=== PATIENT | male | born 1955 | race American Indian/Alaskan Native ===

== ENCOUNTER 2019-05-12 06:35 | Inpatient (IN) | payer OTHER ==
--- NOTE | 2019-05-07 11:22 | Anesthesia Consultation ---
Anesthesia Consult and Med Hx Date of service: 05/07/19 - Airway Anesthetic Teeth Evaluation: Good ROM Head & Neck: Adequate Mental/Hyoid Distance: Adequate Mallampati Class: Class II Intubation Access Assessment: Good - Pulmonary Exam CTA: Yes - Cardiac Exam Cardiac Exam: RRR - Pre-Operative Health Status ASA Pre-Surgery Classification: ASA2 Proposed Anesthetic Plan: General Nerve Block: Adductor canal - Pulmonary Hx Smoking: Yes (STOPPED 1974) Hx Sleep Apnea: No (ALDA PRE SCREEN HIGH RISK) - Cardiovascular System Hx Hypertension: Yes (X 30 YRS) Hx Coronary Artery Disease: No Hx Heart Attack/AMI: No - Central Nervous System Hx Back Pain: Yes (WITH PAIN AND NUMBNESS TO PERRY FEET) - Hematic Hx Anemia: No - Other Systems Hx Alcohol Use: Yes (WINE QD) Hx Cancer: No - Additional Comments Anesthesia Medical History Comments: Pt with HTN for knee revision surgery , pt was cleared by family practitioner
[~2019-05-12 06:35] MED LIST: ANCEF/STERILE WATER 2 GM/20 ML IV NR; LACTATED RINGERS 1,000 ML IV SCH; VERSED IV NR
[2019-05-12] MEDS ORDERED: NACL BACTERIOSTATIC INFILTRATI ONE (07:04)
[2019-05-12] MEDS: NACL 0.9% 1000 ML 1,000 ML IV SCH ×2 (07:10→19:52)
[2019-05-12] MEDS ORDERED: NACL 0.9% 500 ML 500 ML IV NR (07:30)
[2019-05-12] MEDS ORDERED: SUBLIMAZE ONE ×3 (07:32→11:43)
[2019-05-12] MEDS ORDERED: VERSED ONE (07:33)
[2019-05-12] MEDS ORDERED: XYLOCAINE 1% 20 mL ONE (07:33)
[2019-05-12] MEDS ORDERED: MARCAINE-EPI 0.5%-1:200,000 INFILTRATI ONE (07:34)
[2019-05-12] MEDS ORDERED: TORADOL ONE (07:51)
[2019-05-12] MEDS ORDERED: MARCAINE 0.25% INFILTRATI ONE ×2 (07:52→12:10)
[2019-05-12] MEDS ORDERED: ZOFRAN ONE (07:52)
[2019-05-12] MEDS ORDERED: DIPRIVAN 10 MG/ML IV ONE (07:52)
[2019-05-12] MEDS ORDERED: DECADRON ONE (07:52)
[2019-05-12] MEDS ORDERED: BACITRACIN ONE (07:53)
[2019-05-12] MEDS ORDERED: MORPHINE ONE (07:53)
[2019-05-12] MEDS ORDERED: POLYMYXIN B SULFATE IV ONE ×2 (07:53→11:30)
[2019-05-12] MEDS ORDERED: ZOFRAN IV PRN ×2 (07:57→12:10)
[2019-05-12] MEDS ORDERED: XYLOCAINE 1%/ EPI 1:100,000 INFILTRATI ONE ×2 (07:57→12:10)
--- NOTE | 2019-05-12 07:57 | Anesthesia Day of Surgery ---
Anesthesia Day of Surgery - Day of Surgery Patient Examined: Yes Patient H&P Reviewed: Yes Patient is NPO: Yes
[2019-05-12] MEDS ORDERED: NACL P/F VIAL (10 ML) 20 ML ONE ×2 (07:59→11:49)
[2019-05-12] MEDS ORDERED: XYLOCAINE CARDIAC IV ONE (08:23)
[2019-05-12] MEDS ORDERED: ZEMURON IV ONE (08:24)
[2019-05-12] MEDS ORDERED: CLORPACTIN WCS-90 IR ONE (10:12)
[2019-05-12] MEDS ORDERED: TRANEXAMIC ACID ONE (10:30)
[2019-05-12] MEDS ORDERED: NACL 0.9% 100 ML ONE (11:08)
[2019-05-12] MEDS ORDERED: NACL 0.9% IR ONE (11:30)
[2019-05-12] MEDS ORDERED: BACITRACIN IR ONE (11:30)
[2019-05-12] MEDS ORDERED: .VANCOMYCIN VIAL ONE (11:48)
[2019-05-12] MEDS ORDERED: TORADOL IV ONE (12:10)
[2019-05-12] MEDS ORDERED: MORPHINE IM ONE (12:10)
[2019-05-12] MEDS ORDERED: MORPHINE IV PRN (12:10)
[2019-05-12] MEDS ORDERED: NACL 0.9% IV ONE (12:10)
[2019-05-12] MEDS ORDERED: TRAMADOL HCL 200 MG PO PRN (12:19)
[2019-05-12] MEDS ORDERED: TORADOL IV PRN (12:22)
--- NOTE | 2019-05-12 12:29 | Progress Note ---
Subjective Date of service: 05/12/19 Interval history: s/p Revision knee, replacement of patella and poly exchange with soft tissue release, release of scar tisssue and adhesions. Patient to start ROM exercises and knee ROM. dressing dry, NVI CALF SOFT NT PT/OT Continue DVT prophylaxsis SED, and ASA ICE PACS KNEE Pain control Follow up with Valerie Forrest in 2 weeks. DC Planning to start by case sealer and HH arrangements to be made..for home nurse visit and home PT. Follow DC instyruction sheet in the chart Objective Vital signs: Vital Signs - 12hr 05/12/19 05/12/19 05/12/19 06:55 07:16 07:35 Temperature 98.1 F 98.1 F Pulse Rate 69 65 69 Respiratory 18 17 18 Rate Blood Pressure 148/103 143/90 148/103 O2 Sat by Pulse 97 95 97 Oximetry 05/12/19 05/12/19 05/12/19 07:48 08:16 08:27 Temperature Pulse Rate 71 64 69 Respiratory 17 10 L 12 Rate Blood Pressure 148/91 115/80 122/76 O2 Sat by Pulse 96 97 97 Oximetry - Labs Labs: Abnormal lab results 05/12/19 Range/Units 07:10 Crossmatch See Detail
[2019-05-12] MEDS ORDERED: VANCOMYCIN/NS 1 GM/250 ML 1 GM/250 ML BAG IV ONE (12:30)
[2019-05-12] MEDS: DILAUDID IV PRN ×3 (12:55→13:25)
[2019-05-12] MEDS ORDERED: SODIUM CHLORIDE FLUSH SYRINGE 10 ML IV NR (13:00)
--- NOTE | 2019-05-12 13:36 | XRay Report ---
Left knee 2 views Indication: Postop knee replacement Findings: Left total knee arthroplasty has been performed with satisfactory postoperative radiograph appearance . No fracture or subluxation. Signer Name: Donovan Sanchez MD Signed: 05/12/2019 1:31 PM Workstation Name: [id number]
--- NOTE | 2019-05-12 16:02 | Post Anesthesia Evaluation ---
- Post Anesthesia Evaluation Patient Participated: Yes Airway Patent: Yes Stable Respiratory Function: Yes Nausea/Vomiting: No Temp > 96.8F: Yes Pain Manageable: Yes Adequeate Hydration: Yes Anesthesia Complications: No Block Receding Appropriately: Yes Patient on Ventilator: No
[2019-05-12] MEDS: NEURONTIN PO SCH ×2 (16:13→21:34)
[2019-05-12] MEDS: ceFAZolin 2 GM in NACL 0.9% 100 ML IV SCH ×2 (16:22→22:45)
--- NOTE | 2019-05-12 17:11 | Operative Report ---
AGE: 64. SEX: Male. SURGEON: Palmer Jacobsen MD TUBER MACHINE OPERATOR HELPER: Dr. Mark Padilla and Morris Pena, operative tech. COMPLICATIONS: None. BLOOD LOSS: Less than 100 mL. PREOPERATIVE DIAGNOSES: 1. Instability of the left knee. 2. Unresurfaced patella, left knee joint, status post total knee replacement. 3. Painful left knee joint. POSTOPERATIVE DIAGNOSES: 1. Multidirectional instability, left knee joint. 2. Unresurfaced patella, left knee joint. 3. Scar tissue adhesions and osteophytes, juxta-articular area, left knee joint. BRIEF HISTORY: The patient also is a 64-year-old man with painful left knee, failed conservative treatment, opted to go for surgical intervention. Risk and benefit discussed, informed consent obtained, brought to the hospital for the above procedure. DETAILS OF THE OPERATIVE REPORT: The patient was taken to the operating room. After smooth general endotracheal anesthesia, all the bony prominences were carefully padded, placed supine on the operating table, thigh tourniquet was placed, left knee and left lower extremity prepped and draped in sterile fashion. The leg elevated, Esmarch used and tourniquet inflated to 300 mmHg. The patient was given 2 grams of Ancef half an hour before the procedure. Previous scar, longitudinal incision made over the anterior aspect of the knee and the same line where the previous scar was then extended a centimeter proximally and distally to get a better exposure and soft tissue plane. Incision was carried down deep to subcutaneous tissue and tensor extensor mechanism was exposed. Previous Ethibond sutures were identified and removed. Very minimal flaps were made. The arthrotomy performed. The fluid was sent for pathology, aspirated on the syringe for cell count with diff, aerobic and anaerobic culture. It looked very clear. Once the knee arthrotomy was performed, we noticed significant amount of osteophyte was in the suprapatellar area, which was kind of on the undersurface of the patella and was sitting on top of the anterior femur kind of which was basically acting as a fixed loose body in the retropatellar area. This was dissected out and removed. Noticed significant amount of bone spur on the medial tibial plateau abutting the medial collateral ligament, which was also dissected and removed, protecting the collateral ligament. Soft tissue release was performed minimal to get Z-retractor in place. We noticed there was multidirectional instability, some tightness in the varus and laxity over the lateral side with multidirectional instability present as well significant arthritic and worn out patella with ring osteophytes all around. Bare bone in the retropatellar area. Necessary pictures and videos were taken. The soft tissue in the suprapatellar area was released with a significant amount of scar tissue adhesions were present and medial lateral gutter was removed and soft tissue release on the anterior aspect of the patella. Anterior aspect of the femur was removed as well. Once necessary soft tissue release, scar tissue and adhesions were released and removed and diagnosis confirmed. The polyethylene liner was removed with 0.25 inch curved osteotome. We noticed the femur and tibia was assessed. This was properly rotated. It was well fixed. We made attempts to see and necessary steps were done to make sure if there was any micro motion. There was no micro motion on the tibia and there was no movement on the femoral side and they were very well fixed. Dr. Padilla was also present and aware of this as well. Finally, both decided to do a polyethylene exchange and replacement of the patella with necessary soft tissue release. The polyethylene liner, which was removed were noticed to have delamination and cracks on the posteromedial corner and there was missing significant delamination of the polyethylene with wear and tear of the posterior medial corner of the polyethylene liner. Once the liner was removed, the remnant of the worn out polyethylene liner was seen was removed as well. Thorough washing was then performed after the cultures were taken as culture swabs and tissue cultures were taken and then thorough washing was performed after that with antibiotic-soaked normal saline followed by normal saline. We decided to go with a polyethylene exchange and replacement of the patella. A trial liner was then placed with 13 liner, we had great stability. We had to do soft tissue release on the medial side to balance it both medial and laterally. Once necessary soft tissue release was performed, minimal release of the pes and capsular structures in the posterior medial corner of the tibia. This made a good balanced knee. The 13 liner was placed. We had full extension. There was about 10-15 degree hyperextension after the anesthesia. We noticed that after that with 13 poly, we had full extension and we had about 120 degree flexion. The knee was stable anteroposteriorly. The CS poly with anterior lip was placed. The 13 poly gave us great stability in flexion and extension. Patella was then replaced. The synovium around the patella was excised, measured to be 25 mm. Gradually, patella was prepared with patellar reaming system, prepared for three post-patella. The trial patella was then placed and knee again moved through range of motion and found to be extremely stable and patella tracked very well. The real liner was then implanted after thorough washing and 36 mm patella was then cemented in place, Palacos cement was used and it was compressed until the cement was hardened. Once this was done, the knee was again moved through range of motion, found to be extremely stable, full range of motion was seen, full extension and full flexion. Tourniquet was deflated in the middle and no active bleeder as such. Thorough washing was done and a pain cocktail injected into the periarticular tissue around the knee. Arthrotomy was closed with a combination of #1 Ethibond suture and 0 Vicryl suture, subcutaneous tissue was closed with 0 and 2-0 Vicryl interrupted sutures, skin was closed with Monocryl. Aquacel dressing done. The patient tolerated the procedure very well, shifted to recovery room in stable condition. Sponge and needle count was correct. JOB# [id number] SK/JANET
--- NOTE | 2019-05-12 17:51 | History and Physical Report ---
History of Present Illness Date of examination: 05/12/19 Date of admission: 05/12/19 06:35 Chief complaint: S/p Lt Knee revision surgery History of present illness: S/p Revision of L knee, replacement of patella and poly exchange with soft tissue release, release of scar tisssue and adhesions. Patient to start ROM exercises and knee ROM. Postop patient doing well. Patient with Hx of HTN and OA. Past History Past Medical History: hypertension Past Surgical History: total knee replacement Social history: lives with family, full code Family history: hypertension Medications and Allergies Allergies Allergy/AdvReac Type Severity Reaction Status Date / Time No Known Allergies Allergy Verified 05/06/16 11:51 Home Medications Medication Instructions Recorded Confirmed Last Taken Type Tramadol HCl [traMADol ER 100 MG] 200 mg PO PRN PRN 05/06/16 05/12/19 05/06/19 09:00 History Azilsartan Med/Chlorthalidone 1 each PO DAILY 05/04/19 05/12/19 05/12/19 05:00 History [Edarbyclor 40-12.5 mg Tablet] Active Meds: Active Medications Acetaminophen/Hydrocodone Bitart ([place] 10/325) 1 each PO Q4H PRN PRN Reason: Pain, Moderate (4-6) Aspirin (Aspirin) 325 mg PO BID IVETH Cefazolin Sodium (Ancef/Sterile Water 2 Gm/20 Ml) 2 gm IV PREOP NR Stop: 05/12/19 23:59 Celecoxib (Celebrex) 200 mg PO BID IVETH Chlorthalidone (Thalitone) 12.5 mg PO QDAY IVETH Gabapentin (Neurontin) 300 mg PO Q8HR IVETH Last Admin: 05/12/19 16:13 Dose: 300 mg Documented by: Hydromorphone HCl (Dilaudid) 0.5 mg IV Q10MIN PRN PRN Reason: Pain , Severe (7-10) Stop: 05/12/19 20:00 Last Admin: 05/12/19 13:25 Dose: 0.5 mg Documented by: Sodium Chloride (Nacl 0.9% 1000 Ml) 1,000 mls @ 100 mls/hr IV DIRECT IVETH Last Admin: 05/12/19 07:10 Dose: 100 mls/hr Documented by: Cefazolin Sodium 2 gm/ Sodium (Chloride) 100 mls @ 200 mls/hr IV Q8HR IVETH; Protocol Stop: 05/13/19 06:29 Last Admin: 05/12/19 16:22 Dose: 200 mls/hr Documented by: Ketorolac Tromethamine (Toradol) 15 mg IV Q6H PRN PRN Reason: Pain, Mild (1-3) Stop: 05/13/19 11:59 Last Admin: 05/12/19 13:04 Dose: 15 mg Documented by: Losartan Potassium (Cozaar) 50 mg PO QDAY [facility] Morphine Sulfate (Morphine) 2 mg IV Q4H PRN PRN Reason: Pain, Moderate (4-6) Last Admin: 05/12/19 16:27 Dose: 2 mg Documented by: Ondansetron HCl (Zofran) 4 mg IV ONCE PRN PRN Reason: Nausea And Vomiting Stop: 05/12/19 20:00 Ondansetron HCl (Zofran) 4 mg IV Q8H PRN PRN Reason: Nausea And Vomiting Oxycodone/Acetaminophen (Percocet 5/325) 1 tab PO Q6H PRN PRN Reason: Pain, Moderate (4-6) Sodium Chloride (Sodium Chloride Flush Syringe 10 Ml) 10 ml IV PRN NR Stop: 05/13/19 23:59 Review of Systems All systems: negative Constitutional: no weight loss, no weight gain, no fever, no chills, no sweats, no night sweats Ears, nose, mouth and throat: deferred Cardiovascular: no chest pain, no orthopnea, no palpitations, no rapid/irregular heart beat, no edema, no syncope, no lightheadedness, no shortness of breath Respiratory: no cough, no cough with sputum, no excessive sputum, no hemoptysis, no shortness of breath, no dyspnea on exertion Gastrointestinal: no abdominal pain, no nausea, no vomiting, no diarrhea, no constipation, no change in bowel habits, no hematemesis, no coffee ground emesis Genitourinary Male: no dysuria, no hematuria, no flank pain, no discharge, no urinary frequency, no urinary hesitancy, no nocturia, no incontinence, no erectile dysfunction, no genital pain Rectal: no pain Musculoskeletal: no neck stiffness, no neck pain, no shooting arm pain, no arm numbness/tingling, no low back pain, no shooting leg pain, no leg numbness/tingling, no redness of joints Integumentary: no rash, no pruritis, no redness, no sores, no wounds, no jaundice, no boils, no blisters Neurological: no head injury, no transient paralysis, no paralysis, no weakness, no parathesias, no numbness, no tingling, no seizures, no syncope, no tremors, no ataxia, no lack of coordination Psychiatric: no anxiety, no memory loss, no change in sleep habits, no sleep disturbances, no insomnia, no hypersomnia, no change in appetite, no change in libido, no suicidal ideation, no disorientation, no hallucinations Endocrine: no cold intolerance, no heat intolerance, no polyphagia, no excessive thirst, no polydipsia, no polyuria, no nocturia, no excessive sweating, no flushing, no weight change Hematologic/Lymphatic: no easy bruising, no easy bleeding Allergic/Immunologic: no urticaria, no allergic rhinitis, no wheezing Exam - Constitutional Vitals: Temp Pulse Resp BP Pulse Ox 97.4 F L 76 16 128/84 96 05/12/19 14:36 05/12/19 14:36 05/12/19 14:36 05/12/19 14:36 05/12/19 14:36 General appearance: Present: no acute distress, well-nourished - EENT Eyes: Present: PERRL ENT: hearing intact, clear oral mucosa - Neck Neck: Present: supple, normal ROM - Respiratory Respiratory effort: normal Respiratory: bilateral: CTA - Cardiovascular Heart rate: 78 Rhythm: regular Heart Sounds: Present: S1 & S2. Absent: rub, click - Extremities Extremities: pulses symmetrical, No edema Peripheral Pulses: within normal limits - Abdominal General gastrointestinal: Present: soft, non-tender, non-distended, normal bowel sounds Male genitourinary: Present: normal - Integumentary Integumentary: Present: clear, warm, dry - Musculoskeletal Musculoskeletal: gait normal, strength equal bilaterally - Psychiatric Psychiatric: appropriate mood/affect, intact judgment & insight - Neurologic Neurologic: CNII-XII intact, moves all extremities - Allied Health Allied health notes reviewed: nursing, case management Results - Labs Labs: Laboratory Last Values Blood Type O POSITIVE 05/12/19 07:10 Antibody Screen Negative 05/12/19 07:10 Crossmatch See Detail 05/12/19 07:10 Assessment and Plan Advance Directives: Yes (full code) VTE prophylaxis?: Mechanical Plan of care discussed with patient/family: Yes - Patient Problems (1) Status post right knee surgery Current Visit: Yes Status: Acute Plan to address problem: Patient had revision surgery on the left knee\ Postop patient doing well Physical therapy to be started Possible discharge on Friday (2) Hypertension Current Visit: Yes Status: Chronic Qualifiers: Hypertension type: essential hypertension Qualified Code(s): I10 - Essential (primary) hypertension Plan to address problem: Continue antihypertensives (3) Osteoarthritis Current Visit: Yes Status: Chronic Qualifiers: Osteoarthritis location: knee Laterality: bilateral Plan to address problem: Continue tramadol (4) DVT prophylaxis Current Visit: Yes Status: Acute Plan to address problem: On SCDs and GI prophylaxis (5) Discharge planning issues Current Visit: Yes Status: Acute Plan to address problem: field services manager to arrange for home health and home health physical therapy
[2019-05-12] MEDS: PERCOCET 5/325 PO PRN (21:33)
[2019-05-12] MEDS: ASPIRIN PO SCH (21:38)
[2019-05-13] MEDS: NACL 0.9% 1000 ML 1,000 ML IV SCH (04:57)
[2019-05-13] MEDS: PERCOCET 5/325 PO PRN ×2 (04:58→19:03)
[2019-05-13] MEDS: ceFAZolin 2 GM in NACL 0.9% 100 ML IV SCH (05:00)
[2019-05-13] MEDS: NEURONTIN PO SCH ×2 (05:00→22:50)
[2019-05-13 05:27] LABS: Hematocrit 39.1 % (35.5-45.6); Hemoglobin 13.5 gm/dl (11.8-15.2)
[2019-05-13 05:47] LABS: BUN/Creatinine Ratio 16; Blood Urea Nitrogen 16 mg/dL (9-20); Calcium 8.4 mg/dL (8.4-10.2); Hemolysis Index 18
[2019-05-13] MEDS: NORCO 10/325 PO PRN (09:07)
[2019-05-13] MEDS: ASPIRIN PO SCH ×2 (09:08→22:50)
[2019-05-13] MEDS: COZAAR PO SCH (09:09)
[2019-05-13] MEDS: THALITONE PO SCH (09:10)
--- NOTE | 2019-05-13 09:28 | Progress Note ---
Assessment and Plan Assessment and plan: Left knee surgery s/p surgical revision left knee by Dr. Jacobsen history of left knee replacement PT supportive care Hypertension BP stable on Losartan and Chlorthalidone Obesity. I counseled him on diet and exercise Osteoarthrithis s/p knee replacement Full code status History Interval history: patient had left knee surgery yesterday / less pain left knee Hospitalist Physical - Physical exam Narrative exam: Gen: Not in acute distress, lying in bed,obese HEENT: Normocephalic, atraumatic Neck: supple, no JVD Heart: S1 and S2 reg, no murmurs, rubs or gallop Lungs: Clear, no crackles, no wheeze Abd: soft, non tender, non distended, normal BS Ext: Left lower ext covered with dressing, bandage, Neuro: Awake,alert, moves all ext, non focal - Constitutional Vitals: Temp Pulse Resp BP Pulse Ox 97.8 F 59 L 16 132/78 99 05/13/19 07:07 05/13/19 09:09 05/13/19 07:07 05/13/19 09:09 05/13/19 07:07 General appearance: Present: no acute distress, well-nourished Results - Labs CBC & Chem 7: 05/13/19 04:20 05/13/19 04:20 Labs: Laboratory Last Values Hgb 13.5 gm/dl (11.8-15.2) 05/13/19 04:20 Hct 39.1 % (35.5-45.6) 05/13/19 04:20 Sodium 139 mmol/L (137-145) 05/13/19 04:20 Potassium 4.0 mmol/L (3.6-5.0) 05/13/19 04:20 Chloride 106.0 mmol/L (98-107) 05/13/19 04:20 Carbon Dioxide 23 mmol/L (22-30) 05/13/19 04:20 14 mmol/L 05/13/19 04:20 BUN 16 mg/dL (9-20) 05/13/19 04:20 1.0 mg/dL (0.8-1.5) 05/13/19 04:20 Estimated GFR > 60 ml/min 05/13/19 04:20 16 % 05/13/19 04:20 Glucose 125 mg/dL (75-100) H 05/13/19 04:20 Calcium 8.4 mg/dL (8.4-10.2) 05/13/19 04:20 Blood Type O POSITIVE 05/12/19 07:10 Antibody Screen Negative 05/12/19 07:10 Crossmatch See Detail 05/12/19 07:10 Active Medications - Current Medications Current Medications: Generic Name Dose Route Start Last Admin Trade Name Freq PRN Reason Stop Dose Admin Acetaminophen/Hydrocodone Bitart 1 each 05/12/19 12:21 05/13/19 09:07 [place] 10/325 PO 1 each Q4H PRN Administration Pain, Moderate (4-6) Aspirin 325 mg 05/12/19 22:00 05/13/19 09:08 Aspirin PO 325 mg BID IVETH Administration Celecoxib 200 mg 05/12/19 22:00 05/13/19 09:07 Celebrex PO 200 mg BID IVETH Administration Chlorthalidone 12.5 mg 05/13/19 10:00 05/13/19 09:10 Thalitone PO 12.5 mg QDAY IVETH Administration Gabapentin 300 mg 05/12/19 14:00 05/13/19 05:00 Neurontin PO 300 mg Q8HR IVETH Administration Sodium Chloride 1,000 mls @ 100 mls/hr 05/12/19 07:00 05/13/19 04:57 Nacl 0.9% 1000 Ml IV 100 mls/hr DIRECT IVETH Administration Ketorolac Tromethamine 15 mg 05/12/19 12:22 05/12/19 13:04 Toradol IV 05/13/19 11:59 15 mg Q6H PRN Administration Pain, Mild (1-3) Losartan Potassium 50 mg 05/13/19 10:00 05/13/19 09:09 Cozaar PO 50 mg QDAY IVETH Administration Morphine Sulfate 2 mg 05/12/19 12:10 05/12/19 16:27 Morphine IV 2 mg Q4H PRN Administration Pain, Moderate (4-6) Ondansetron HCl 4 mg 05/12/19 12:10 Zofran IV Q8H PRN Nausea And Vomiting Oxycodone/Acetaminophen 1 tab 05/12/19 12:10 05/13/19 04:58 Percocet 5/325 PO 1 tab Q6H PRN Administration Pain, Moderate (4-6) Sodium Chloride 10 ml 05/12/19 13:00 Sodium Chloride Flush Syringe 10 Ml IV 05/13/19 23:59 PRN NR
[2019-05-13] MEDS ORDERED: CHLORTHALIDONE PO SCH (10:00)
[2019-05-13] MEDS ORDERED: AZILSARTAN MED PO SCH (10:00)
--- NOTE | 2019-05-13 15:10 | Progress Note ---
Subjective Date of service: 05/13/19 Interval history: POD1, S/p ReVISION tka LEFT dRESSING DRY, Calf soft NT Knee exer taught patient bending 0-90 deg Alert, oriented, conversing well AVSS. NVI DC planning once clear by medicine and PT and once HH PT and HH nursing visit are arranged. DC TKA instruction sheet to be given to the patient along with script for ASA 325 MG BID Objective Vital signs: Vital Signs - 12hr 05/13/19 05/13/19 05/13/19 04:39 04:58 07:07 Temperature 97.9 F 97.8 F Pulse Rate 56 L 59 L Respiratory 20 18 16 Rate Blood Pressure 124/84 132/78 O2 Sat by Pulse 96 99 Oximetry 05/13/19 05/13/19 09:09 11:39 Temperature 98.6 F Pulse Rate 59 L 70 Respiratory 18 Rate Blood Pressure 132/78 147/86 O2 Sat by Pulse 95 Oximetry - Labs CBC & BMP: 05/13/19 04:20 05/13/19 04:20 Labs: Abnormal lab results 05/13/19 Range/Units 04:20 Glucose 125 H (75-100) mg/dL
[2019-05-14] MEDS: NEURONTIN PO SCH ×2 (06:16→07:30)
[2019-05-14] MEDS: PERCOCET 5/325 PO PRN (07:29)
[2019-05-14] MEDS ORDERED: NEO SYNEPHRINE/NS Syringe(OR USE) IV ONE (08:00)
[2019-05-14 09:01] LABS: Hemoglobin 12.5 gm/dl (11.8-15.2)
--- NOTE | 2019-05-14 10:51 | Discharge Summary ---
Providers - Providers Date of Admission: 05/12/19 06:35 Date of discharge: 05/14/19 Attending physician: CAPRI DOWNS 05/12/19 12:10 Consult to Case Management [CONS] Routine Services Needed at Discharge: Home Health Services Exercise Instructor Physical Therapy DME Equipment Occupational Therapy Notified:: TELEHEALTH DIRECTOR Consult to Physician [CONS] Routine Comment: COMPLETED -ASHLEE Consulting Provider: RUCHI KLEIN Physician Instructions: Reason For Exam: postop protocol 05/12/19 12:17 Physical Therapy Evaluation and Treat [CONS] Routine Comment: Reason For Exam: postop revision Total knee Mode of Transport?: Cane Weight bearing status?: Full wt bearing Assistive devices?: Yes Primary care physician: SYRUP MIXER Hospitalization Condition: Fair Hospital course: Patient is 64 yo with history of hypertension, osteoarthritis, s/p left knee replacement. He had left knee pain and instability of left knee. He was admitted had revision knee, replacement of patella and poly exchange with soft tissue release, release of scar tisssue and adhesions. Post op he did well. Was evaluated by physical therapy. He was then discharged home on 05/14/19 on narcotics and Aspirin 325 mg edgardo bid as per [facility]. Total time spent on discharge, 31 mins Disposition: [id number] HOME UNDER HOME HLTH - Discharge Diagnoses (1) Hypertension Status: Chronic Qualifiers: Hypertension type: essential hypertension Qualified Code(s): I10 - Essential (primary) hypertension (2) Osteoarthritis Status: Chronic Qualifiers: Osteoarthritis location: knee Laterality: bilateral Core Measure Documentation - Palliative Care Palliative Care/ Comfort Measures: Not Applicable - Core Measures Any of the following diagnoses?: none Exam - Constitutional Vitals: Temp Pulse Resp BP Pulse Ox 97.5 F L 62 18 171/108 96 05/14/19 07:53 05/14/19 07:53 05/14/19 07:53 05/14/19 07:53 05/14/19 07:53 Plan Diet: low fat, low cholesterol, low salt Special Instructions: physical therapy, home health RN Additional Instructions: 1.Follow up with PCP in 1 week. 2.Follow up with Dr. Klein in 3-5 days. 3.Home health Nursing. 4.Home health Physical therapy. Follow up with: PRIMARY CARE, [Primary Care Provider] - 7 Days Prescriptions: RX: Aspirin EC 325 mg PO BID 28 Days #56 tablet. Famotidine [Pepcid] 20 mg PO BID #60 tablet RX: oxyCODONE /ACETAMINOPHEN [Percocet 5/325 mg] 1 tab PO Q6H PRN #20 tablet PRN Reason: Pain, Moderate (4-6)
[2019-05-14] MEDS: COZAAR PO SCH (11:40)
[2019-05-14] MEDS: THALITONE PO SCH (11:43)
[2019-05-14] MEDS: ASPIRIN PO SCH (11:52)
[2019-05-14 12:11] VITALS: BP 182/109
[2019-05-14] MEDS: NORCO 10/325 PO PRN (12:13)
== END 2019-05-14 14:30 | disposition home health service (06) | DRG 465 ==
LOC: 3A 06:35 → 3B-SURG 12:25
PROVIDERS: ADMIT Orthopaedic Surgery; ATTEND Internal Medicine
PROC: 0SPD0NZ Removal of Patellofemoral Synthetic Substitute from Left Knee Joint, Open Approach (ICD-10-PCS; principal; 2019-05-12)
PROC: 0SRD0N9 Replacement of Left Knee Joint with Patellofemoral Synthetic Substitute, Cemented, Open Approach (ICD-10-PCS; 2019-05-12)
DX: T84.033A Mechanical loosening of internal left knee prosthetic joint, initial encounter (principal); I10 Essential (primary) hypertension; M17.12 Unilateral primary osteoarthritis, left knee; E66.9 Obesity, unspecified; Z96.652 Presence of left artificial knee joint; Z71.3 Dietary counseling and surveillance; Z87.891 Personal history of nicotine dependence; Z72.89 Other problems related to lifestyle; Z68.31 Body mass index [BMI] 31.0-31.9, adult; Z82.49 Family history of ischemic heart disease and other diseases of the circulatory system
CPT/HCPCS: 36415; 64450; 80048; 85014; 85018; 86850; 86900; 86901; 86920; 87075; 87116; 88300; 88302; 88304; 88305; 88311; 94760; G0378; A4217; C1713; C1776; J0690; J1100; J1170; J1885; J2001; J2250; J2270; J2370; J2405; J2704; J3010; J3370; J7030